=== PATIENT | male | born 1970 | race Caucasian/White ===

== ENCOUNTER 2020-06-14 08:58 | Inpatient (IN) ==
[2020-06-14 09:47] LABS: Basophils % 0.3 % (0.0-0.8); Hematocrit 44.3 VOL% (42.0-52.0); Hemoglobin 15.1 GM/DL (14.0-18.0); Immature Granulocytes % 0.3 %; Immature Granulocytes Absolute 0.01 #; Lymphocytes # 1.1 10*3/uL (1.4-4.0); Lymphocytes % 28.1 % (21.2-54.2); Mean Corpuscular HGB Conc 34.1 GM/DL (32-36); Mean Corpuscular Volume 88.8 FL (87-102); Mean Platelet Volume 9.2 FL (9.6-12.0); Monocytes % 7.8 % (1.7-12.7); Neutrophils % 63.5 % (38.7-73.9); Platelet Count 159 T/CUMM (130-400); Red Blood Count 4.99 MC/CUMM (3.8-5.5); Red Cell Distribution Width 12.4 % (9.3-17.3); White Blood Count 3.7 T/CUMM (4-12)
[2020-06-14 10:21] LABS: Albumin 3.2 G/DL (3.4-5.0); Bilirubin,Total 0.9 MG/DL (0.2-1.0); Osmolality,Calculated 267.4 MOS/KG (273-304); Potassium 3.1 MMOL/L (3.5-5.1); Total Protein 7.1 G/DL (6.4-8.3)
[2020-06-14] MEDS ORDERED: ONDANSETRON 4 MG/2 ML VIAL IV STA (10:37)
[2020-06-14] MEDS ORDERED: DEXTROSE 50% 25 GM/50 ML VIAL IV PRN (12:06)
[2020-06-14] MEDS ORDERED: GLUCAGON 1 MG VIAL IM PRN (12:06)
[2020-06-14] MEDS ORDERED: ONDANSETRON 4 MG/2 ML VIAL IV PRN (12:06)
[2020-06-14] MEDS ORDERED: AZITHROMYCIN INJ 500 MG in SODIUM CHLORIDE 0.9% 250 ML IV ONE (12:14)
[2020-06-14] MEDS ORDERED: cefTRIAXone 1,000 MG in SYRINGE 1 EACH IV SCH (12:30)
[2020-06-14] MEDS: ENOXAPARIN 40 MG/0.4 ML SYRINGE SUBCUT SCH (13:20)
[2020-06-14] MEDS ORDERED: REMDESIVIR 200 MG in SODIUM CHLORIDE 0.9% 210 ML IV ONE (13:30)
[2020-06-14] MEDS: ALBUTEROL INHALER 18 GM INH SCH ×2 (16:40→18:27)
[2020-06-14] MEDS: cefTRIAXone 1,000 MG in SYRINGE 1 EACH IV SCH (16:40)
[2020-06-14] MEDS: BACLOFEN 10 MG TABLET PO SCH ×2 (16:40→20:15)
[2020-06-14] MEDS: GABAPENTIN 600 MG TABLET PO SCH ×2 (16:41→20:15)
[2020-06-14] MEDS: SODIUM CHLORIDE 0.9% 1,000 ML IV SCH (16:42)
[2020-06-14] MEDS: ROSUVASTATIN 10 MG TABLET PO SCH (20:15)
[2020-06-14] MEDS: FAMOTIDINE 20 MG TABLET PO SCH (20:15)
[2020-06-14] MEDS: ACETAMINOPHEN 325 MG TABLET PO PRN (20:15)
[2020-06-14] MEDS: ASCORBIC ACID 500 MG TABLET PO SCH (20:15)
[2020-06-14] MEDS: clonazePAM 0.5 MG TABLET PO SCH (20:15)
[2020-06-15] MEDS: ACETAMINOPHEN 325 MG TABLET PO PRN ×2 (00:25→06:05)
[2020-06-15] MEDS: SODIUM CHLORIDE 0.9% 1,000 ML IV SCH ×4 (00:40→19:08)
[2020-06-15] MEDS: ALBUTEROL INHALER 18 GM INH SCH ×4 (01:40→18:15)
[2020-06-15 06:32] LABS: Hematocrit 41.8 VOL% (42.0-52.0); Immature Granulocytes % 0.5 %; Immature Granulocytes Absolute 0.02 #; Lymphocytes # 1.2 10*3/uL (1.4-4.0); Lymphocytes % 28.6 % (21.2-54.2); Mean Corpuscular HGB Conc 33.5 GM/DL (32-36); Mean Corpuscular Volume 90.5 FL (87-102); Mean Platelet Volume 9.3 FL (9.6-12.0); Monocytes % 6.5 % (1.7-12.7); Neutrophils % 64.4 % (38.7-73.9); Platelet Count 146 T/CUMM (130-400); Red Blood Count 4.62 MC/CUMM (3.8-5.5); Red Cell Distribution Width 12.7 % (9.3-17.3); White Blood Count 4.2 T/CUMM (4-12)
[2020-06-15 06:55] LABS: Albumin 2.7 G/DL (3.4-5.0); Bilirubin,Total 1.8 MG/DL (0.2-1.0); Calcium 7.7 MG/DL (8.5-10.1); Ferritin 1103.2 ng/ml (26-388); Osmolality,Calculated 266.2 MOS/KG (273-304); Potassium 3.1 MMOL/L (3.5-5.1); Total Protein 6.6 G/DL (6.4-8.3)
[2020-06-15 07:01] LABS: Band Neutrophils 2 % (0-10); Eosinophils 2 % (0-10); Hypochromasia 2+; Lymphocytes 25 % (20-55); Platelet Estimate Adequate; Segmented Neutrophils 66 % (50-85); Total Cells Counted 100
[2020-06-15] MEDS ORDERED: DEXAMETHASONE 4 MG/1 ML VIAL IV SCH (09:00)
[2020-06-15] MEDS: DEXAMETHASONE 4 MG/1 ML VIAL IV SCH (09:41)
[2020-06-15] MEDS: ZINC GLUCONATE 50 MG TABLET PO SCH (09:42)
[2020-06-15] MEDS: clonazePAM 0.5 MG TABLET PO SCH ×2 (09:43→20:45)
[2020-06-15] MEDS: CHOLECALCIFEROL 1,000 UNIT TABLET PO SCH (09:43)
[2020-06-15] MEDS: REMDESIVIR 100 MG in SODIUM CHLORIDE 0.9% 100 ML IV SCH (09:44)
[2020-06-15] MEDS: ASCORBIC ACID 500 MG TABLET PO SCH ×2 (09:44→20:45)
[2020-06-15] MEDS: GABAPENTIN 600 MG TABLET PO SCH ×3 (09:55→20:45)
[2020-06-15] MEDS: AZITHROMYCIN 250 MG TABLET PO SCH (09:55)
[2020-06-15] MEDS: BACLOFEN 10 MG TABLET PO SCH ×3 (09:57→20:45)
[2020-06-15] MEDS: FLUoxetine 20 MG CAPSULE PO SCH (09:58)
[2020-06-15] MEDS: atenoloL 25 MG TABLET PO SCH (09:58)
[2020-06-15] MEDS: FAMOTIDINE 20 MG TABLET PO SCH ×2 (09:58→20:45)
[2020-06-15] MEDS: CETIRIZINE 10 MG TABLET PO SCH (09:58)
[2020-06-15] MEDS: PANTOPRAZOLE 40 MG TABLET PO SCH (09:58)
[2020-06-15] MEDS ORDERED: SODIUM CHLORIDE 0.9% 1,000 ML IV PRN (11:50)
[2020-06-15] MEDS: ENOXAPARIN 40 MG/0.4 ML SYRINGE SUBCUT SCH (12:29)
[2020-06-15] MEDS: cefTRIAXone 1,000 MG in SYRINGE 1 EACH IV SCH (12:29)
[2020-06-15] MEDS: POTASSIUM CHLORIDE 20 MEQ TABLET PO PRN ×4 (14:38→20:45)
[2020-06-15] MEDS: ROSUVASTATIN 10 MG TABLET PO SCH (20:45)
[2020-06-16] MEDS: ALBUTEROL INHALER 18 GM INH SCH ×4 (00:06→21:41)
[2020-06-16] MEDS: SODIUM CHLORIDE 0.9% 1,000 ML IV SCH ×2 (03:03→13:58)
[2020-06-16 06:16] LABS: Calcium 7.9 MG/DL (8.5-10.1); Ferritin 1148.8 ng/ml (26-388); Osmolality,Calculated 283.1 MOS/KG (273-304); Potassium 4.2 MMOL/L (3.5-5.1)
[2020-06-16] MEDS: atenoloL 25 MG TABLET PO SCH (09:15)
[2020-06-16] MEDS: CETIRIZINE 10 MG TABLET PO SCH (09:15)
[2020-06-16] MEDS: CHOLECALCIFEROL 1,000 UNIT TABLET PO SCH (09:15)
[2020-06-16] MEDS: AZITHROMYCIN 250 MG TABLET PO SCH (09:15)
[2020-06-16] MEDS: ZINC GLUCONATE 50 MG TABLET PO SCH (09:15)
[2020-06-16] MEDS: FLUoxetine 20 MG CAPSULE PO SCH (09:15)
[2020-06-16] MEDS: FAMOTIDINE 20 MG TABLET PO SCH ×2 (09:15→21:42)
[2020-06-16] MEDS: BACLOFEN 10 MG TABLET PO SCH ×3 (09:15→21:42)
[2020-06-16] MEDS: GABAPENTIN 600 MG TABLET PO SCH ×3 (09:15→21:42)
[2020-06-16] MEDS: clonazePAM 0.5 MG TABLET PO SCH ×2 (09:15→21:42)
[2020-06-16] MEDS: ASCORBIC ACID 500 MG TABLET PO SCH ×2 (09:15→21:42)
[2020-06-16] MEDS: PANTOPRAZOLE 40 MG TABLET PO SCH (09:15)
[2020-06-16] MEDS: DEXAMETHASONE 4 MG/1 ML VIAL IV SCH (10:42)
[2020-06-16] MEDS: REMDESIVIR 100 MG in SODIUM CHLORIDE 0.9% 100 ML IV SCH (10:43)
[2020-06-16] MEDS: cefTRIAXone 1,000 MG in SYRINGE 1 EACH IV SCH (12:17)
[2020-06-16] MEDS: ENOXAPARIN 40 MG/0.4 ML SYRINGE SUBCUT SCH (12:17)
[2020-06-16] MEDS: MELATONIN 3 MG TABLET PO PRN (21:41)
[2020-06-16] MEDS: ROSUVASTATIN 10 MG TABLET PO SCH (21:41)
[2020-06-17] MEDS: ALBUTEROL INHALER 18 GM INH SCH ×4 (00:31→20:32)
[2020-06-17 05:47] LABS: Hematocrit 40.6 VOL% (42.0-52.0); Hemoglobin 13.2 GM/DL (14.0-18.0); Immature Granulocytes % 0.3 %; Immature Granulocytes Absolute 0.02 #; Lymphocytes # 0.6 10*3/uL (1.4-4.0); Lymphocytes % 10.6 % (21.2-54.2); Mean Corpuscular HGB Conc 32.5 GM/DL (32-36); Mean Corpuscular Volume 92.7 FL (87-102); Mean Platelet Volume 9.9 FL (9.6-12.0); Neutrophils % 85.1 % (38.7-73.9); Platelet Count 183 T/CUMM (130-400); Red Blood Count 4.38 MC/CUMM (3.8-5.5); Red Cell Distribution Width 12.7 % (9.3-17.3); White Blood Count 5.8 T/CUMM (4-12)
[2020-06-17 06:11] LABS: Ferritin 1094.6 ng/ml (26-388); Osmolality,Calculated 275.7 MOS/KG (273-304); Potassium 4.2 MMOL/L (3.5-5.1)
[2020-06-17] MEDS: CHOLECALCIFEROL 1,000 UNIT TABLET PO SCH (08:15)
[2020-06-17] MEDS: ASCORBIC ACID 500 MG TABLET PO SCH ×2 (08:15→21:34)
[2020-06-17] MEDS: PANTOPRAZOLE 40 MG TABLET PO SCH (08:15)
[2020-06-17] MEDS: atenoloL 25 MG TABLET PO SCH (08:15)
[2020-06-17] MEDS: AZITHROMYCIN 250 MG TABLET PO SCH (08:15)
[2020-06-17] MEDS: CETIRIZINE 10 MG TABLET PO SCH (08:15)
[2020-06-17] MEDS: FAMOTIDINE 20 MG TABLET PO SCH ×2 (08:15→21:34)
[2020-06-17] MEDS: DEXAMETHASONE 4 MG/1 ML VIAL IV SCH (08:15)
[2020-06-17] MEDS: FLUoxetine 20 MG CAPSULE PO SCH (08:15)
[2020-06-17] MEDS: GABAPENTIN 600 MG TABLET PO SCH ×3 (08:15→21:34)
[2020-06-17] MEDS: clonazePAM 0.5 MG TABLET PO SCH ×2 (08:15→21:34)
[2020-06-17] MEDS: ZINC GLUCONATE 50 MG TABLET PO SCH (08:15)
[2020-06-17] MEDS: BACLOFEN 10 MG TABLET PO SCH ×3 (08:15→21:34)
[2020-06-17] MEDS: REMDESIVIR 100 MG in SODIUM CHLORIDE 0.9% 100 ML IV SCH (09:22)
[2020-06-17] MEDS: ENOXAPARIN 40 MG/0.4 ML SYRINGE SUBCUT SCH (11:31)
[2020-06-17] MEDS: cefTRIAXone 1,000 MG in SYRINGE 1 EACH IV SCH (11:31)
[2020-06-17] MEDS: MELATONIN 3 MG TABLET PO PRN (21:34)
[2020-06-17] MEDS: ROSUVASTATIN 10 MG TABLET PO SCH (21:34)
[2020-06-18] MEDS: ALBUTEROL INHALER 18 GM INH SCH ×2 (00:19→08:07)
[2020-06-18 05:35] LABS: Hematocrit 39.6 VOL% (42.0-52.0); Hemoglobin 13.1 GM/DL (14.0-18.0); Immature Granulocytes % 0.7 %; Immature Granulocytes Absolute 0.05 #; Lymphocytes # 0.9 10*3/uL (1.4-4.0); Lymphocytes % 13.1 % (21.2-54.2); Mean Corpuscular HGB Conc 33.1 GM/DL (32-36); Mean Corpuscular Volume 90.2 FL (87-102); Mean Platelet Volume 9.4 FL (9.6-12.0); Monocytes % 5.5 % (1.7-12.7); Neutrophils % 80.7 % (38.7-73.9); Platelet Count 209 T/CUMM (130-400); Red Blood Count 4.39 MC/CUMM (3.8-5.5); Red Cell Distribution Width 12.6 % (9.3-17.3); White Blood Count 6.7 T/CUMM (4-12)
[2020-06-18 06:03] LABS: Ferritin 922.3 ng/ml (26-388)
[2020-06-18 06:06] LABS: Band Neutrophils 2 % (0-10); Lymphocytes 6 % (20-55); Platelet Estimate Normal; Segmented Neutrophils 89 % (50-85); Total Cells Counted 100
[2020-06-18] MEDS: BACLOFEN 10 MG TABLET PO SCH (08:07)
[2020-06-18] MEDS: FAMOTIDINE 20 MG TABLET PO SCH (08:07)
[2020-06-18] MEDS: FLUoxetine 20 MG CAPSULE PO SCH (08:07)
[2020-06-18] MEDS: GABAPENTIN 600 MG TABLET PO SCH (08:07)
[2020-06-18] MEDS: clonazePAM 0.5 MG TABLET PO SCH (08:07)
[2020-06-18] MEDS: DEXAMETHASONE 4 MG/1 ML VIAL IV SCH (08:07)
[2020-06-18] MEDS: atenoloL 25 MG TABLET PO SCH (08:07)
[2020-06-18] MEDS: PANTOPRAZOLE 40 MG TABLET PO SCH (08:07)
[2020-06-18] MEDS: CETIRIZINE 10 MG TABLET PO SCH (08:08)
[2020-06-18] MEDS: ASCORBIC ACID 500 MG TABLET PO SCH (08:08)
[2020-06-18] MEDS: CHOLECALCIFEROL 1,000 UNIT TABLET PO SCH (08:08)
[2020-06-18] MEDS: ZINC GLUCONATE 50 MG TABLET PO SCH (08:08)
[2020-06-18] MEDS: AZITHROMYCIN 250 MG TABLET PO SCH (08:08)
[2020-06-18] MEDS: REMDESIVIR 100 MG in SODIUM CHLORIDE 0.9% 100 ML IV SCH (09:05)
[2020-06-18 11:19] VITALS: BP 136/85
[2020-06-19] MEDS ORDERED: predniSONE 20 MG TABLET PO SCH (09:00)
== END 2020-06-18 11:42 | disposition home or self-care (01) | DRG 177 ==
LOC: N.ED 08:58 → N.EDINP 08:58 → SUATTDRO 12:06 → OBSVTOIN 12:06 → N.EDINP 13:22 → N.2E 13:59
PROVIDERS: ADMIT Internal Medicine; ATTEND Internal Medicine